=== PATIENT | female | born 1965 | race Caucasian/White ===

== ENCOUNTER 2018-10-04 15:02 | Emergency (ER) | payer MEDICAID ==
[2018-10-04] MEDS ORDERED: HYDROcod/ACETAM 5/325 MG TABLET PO STA (15:34)
--- NOTE | 2018-10-04 16:16 | XRAY Report ---
Reason: right wrist injury Procedure Date: 10/04/2018 Accession Number: [id number] / [id number] Procedure: XR - Wrist 3 View RT CPT Code: FULL RESULT: EXAM: RIGHT WRIST RADIOGRAPHY EXAM DATE: 10/04/2018 04:04 PM. CLINICAL HISTORY: Trauma, pain. COMPARISON: None. TECHNIQUE: 3 views. FINDINGS: Bones: Normal. No fractures or bone lesions. Joints: Normal. No subluxations. Soft Tissues: Unremarkable. IMPRESSION: Normal wrist radiography. [facility]
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
[2018-10-04 16:48] VITALS: BP 132/87
== END 2018-10-04 16:50 | disposition home or self-care (01) ==
LOC: ED 15:02
DX: S60.211A Contusion of right wrist, initial encounter (principal); S60.811A Abrasion of right wrist, initial encounter; W20.8XXA Other cause of strike by thrown, projected or falling object, initial encounter; Y93.89 Activity, other specified; Y92.009 Unspecified place in unspecified non-institutional (private) residence as the place of occurrence of the external cause; F17.200 Nicotine dependence, unspecified, uncomplicated
CPT/HCPCS: 73110; 99282; 99283; A9270